=== PATIENT | male | born 1980 | race Caucasian/White ===

== ENCOUNTER 2024-12-03 12:37 | Inpatient (IN) | payer OTHER ==
[2024-12-03] MEDS ORDERED: DOCUSATE SODIUM 100 MG CAPSULE (FP) PO PRN (13:19)
[2024-12-03] MEDS ORDERED: guaiFENesin 600 MG TABLET.ER (FP) PO PRN (13:19)
[2024-12-03] MEDS ORDERED: NICOTINE POLACRILEX 2 MG LOZENGE BC PRN (13:19)
[2024-12-03] MEDS ORDERED: BENZOCAINE/MENTHOL (CHLORASEPTIC ) LOZENGE MM PRN (13:19)
[2024-12-03] MEDS ORDERED: BISACODYL 5 MG TABLET.DR (FP) PO PRN (13:19)
[2024-12-03] MEDS ORDERED: NALOXONE (NARCAN) HCL 4 MG/0.1 ML SPRAY NS PRN (13:19)
[2024-12-03] MEDS ORDERED: MAGNESIUM HYDROX 2400MG/30ML ORAL SUSPENSION 30 ML CUP PO PRN (13:19)
[2024-12-03] MEDS ORDERED: BENZONATATE 200 MG CAPSULE PO PRN (13:19)
[2024-12-03] MEDS ORDERED: LOPERAMIDE HCL 2 MG CAPSULE PO PRN (13:19)
[2024-12-03] MEDS ORDERED: NICOTINE POLACRILEX 2 MG GUM BUC PRN (13:19)
[2024-12-03] MEDS ORDERED: ACETAMINOPHEN 325 MG TABLET (FP) PO PRN (13:19)
[2024-12-03] MEDS ORDERED: POLYETHYLENE GLYCOL (HEALTHYLAX) 3350 17 GM PACKET PO PRN (13:19)
[2024-12-03] MEDS ORDERED: IBUPROFEN 400 MG TABLET (FP) PO PRN (13:19)
[2024-12-03] MEDS ORDERED: P-EPHED 60MG/TRIPROLIDI 2.5MG TABLET PO PRN (13:19)
[2024-12-03] MEDS ORDERED: hydrOXYzine PAMOATE 25 MG CAPSULE (FP) PO PRN (13:19)
[2024-12-03] MEDS ORDERED: MAG HYDROX/AL HYDROX/SIMETH 30 ML UNIT-DOSE CUP PO PRN (13:19)
[2024-12-03 15:19] VITALS: BMI 24.3
[2024-12-03] MEDS: IBUPROFEN 600 MG TABLET (FP) PO PRN (18:05)
[2024-12-03 20:40] LABS: URINE APPEARANCE CLEAR; URINE BILIRUBIN NEGATIVE (NEGATIVE); URINE COLOR YELLOW; URINE GLUCOSE (UA) NEGATIVE (NEGATIVE); URINE KETONE NEGATIVE (NEGATIVE); URINE LEUK ESTERASE NEGATIVE (NEGATIVE); URINE NITRITE NEGATIVE (NEGATIVE); URINE PROTEIN NEGATIVE (NEGATIVE); URINE UROBILINOGEN 0.2 mg/dL (0.2-1.0)
[2024-12-03] MEDS: MELATONIN 5 MG TABLETS PO SCH (21:27)
[2024-12-03] MEDS: THIAMINE 100 MG TABLET PO SCH (21:27)
[2024-12-03] MEDS: METHOCARBAMOL 500 MG TABLET PO PRN (21:27)
[2024-12-03] MEDS: hydrOXYzine PAMOATE 25 MG CAPSULE (FP) PO PRN (21:27)
[2024-12-04] MEDS: PRENATAL VITAMINS W/ FOLIC ACID TABLET (FP) PO SCH (09:08)
[2024-12-04] MEDS ORDERED: BUPRENORPHINE HCL 150 MCG, BUPRENORPHINE HCL 75 MCG BC PRN (10:21)
[2024-12-04 11:07] LABS: HEMATOCRIT 38.6 % (35.4-49); HEMOGLOBIN 12.4 GM/dL (11.7-16.9); MCH 26.8 pg (25.7-33.7); MCHC 32.2 g/dl (32.0-35.9); MEAN CELL VOLUME 83.3 fl (80-96); MEAN PLT VOLUME 7.6 fl (7.5-11.1); PLATELET COUNT 387 10^3/uL (134-434); RBC 4.64 M/mm3 (4.00-5.60); RDW 14.9 % (11.9-15.9); WHITE BLOOD COUNT 6.6 K/mm3 (4.0-10.0)
[2024-12-04 12:35] LABS: POTASSIUM 4.4 mmol/L (3.5-5.1)
[2024-12-04 12:41] LABS: ALBUMIN 3.5 g/dl (3.4-5.0); BLOOD UREA NITROGEN 13.8 mg/dL (7-18); CALCIUM 9.6 mg/dL (8.5-10.1)
[2024-12-04 12:44] LABS: CREATININE 0.9 mg/dL (0.55-1.3)
[2024-12-04 12:46] LABS: BILIRUBIN,TOTAL 0.2 mg/dL (0.2-1); TOT PROT 7.7 g/dl (6.4-8.2)
[2024-12-04] MEDS: cloNIDine HCL 0.1 MG TABLET PO ONE (13:29)
[2024-12-04] MEDS: BUPRENORPHINE HCL 150 MCG, BUPRENORPHINE HCL 75 MCG BC ONE (13:31)
[2024-12-04] MEDS ORDERED: cloNIDine HCL 0.1 MG TABLET PO PRN (14:22)
[2024-12-04] MEDS: diazePAM 5 MG TABLET PO PRN (21:38)
[2024-12-04] MEDS: QUEtiapine FUMARATE 50 MG TABLET PO SCH (21:38)
[2024-12-05] MEDS ORDERED: BUPRENORPHINE HCL 150 MCG, BUPRENORPHINE HCL 75 MCG BC PRN
[2024-12-05] MEDS: BUPRENORPHINE HCL 150 MCG, BUPRENORPHINE HCL 75 MCG BC SCH (06:29)
[2024-12-06] MEDS: BUPRENORPHINE HCL 450 MCG FILM BC SCH (06:36)
[2024-12-07] MEDS: BUPRENORPHINE/NALOXONE 4 MG/1 MG FILM PACKET SL SCH (06:19)
[2024-12-08] MEDS: BUPRENORPHINE/NALOXONE 8 MG/2 MG FILM PACKET SL SCH (09:50)
[2024-12-09] MEDS: BUPRENORPHINE/NALOXONE 8 MG/2 MG FILM PACKET SL SCH (21:25)
[2024-12-09] MEDS ORDERED: BUPRENORPHINE/NALOXONE 4 MG/1 MG FILM PACKET SL SCH (22:00)
[2024-12-17] MEDS: TUBERCULIN PPD 5 TU/0.1ML VIAL ID ONE (12:34)
[2024-12-19] MEDS: BUPRENORPHINE/NALOXONE 8 MG/2 MG FILM PACKET SL SCH (10:22)
[2024-12-19] MEDS: QUEtiapine FUMARATE 100 MG TABLET (FP) PO SCH (21:28)
[2024-12-24] MEDS: BUPRENORPHINE/NALOXONE 8 MG/2 MG FILM PACKET SL ONE (19:35)
[2024-12-25] MEDS: BUPRENORPHINE/NALOXONE 8 MG/2 MG FILM PACKET SL SCH (21:34)
[2024-12-27] MEDS ORDERED: DICYCLOMINE HCL 10 MG CAPSULE PO PRN (10:25)
[2024-12-27] MEDS ORDERED: guaiFENesin 600 MG TABLET.ER (FP) PO PRN (10:25)
[2024-12-27] MEDS ORDERED: BENZONATATE 200 MG CAPSULE PO PRN (10:25)
[2024-12-27] MEDS ORDERED: BISMUTH SUBSALICYLATE 524 MG/30 ML PO PRN (10:25)
[2024-12-27] MEDS ORDERED: ONDANSETRON *ODT* 4 MG TABLET SL PRN (10:25)
[2024-12-29 06:55] VITALS: TEMP 97.6
[2024-12-30 06:39] VITALS: BP 127/90; PULSE 98; RESP 18
== END 2024-12-30 10:26 | disposition home or self-care (01) | DRG 772 ==
LOC: YASAS 12:37 → Y3NR 15:12 → Y5N 12-04 11:50
PROVIDERS: ADMIT Allergy & Immunology; ATTEND Psychiatry & Neurology Pain Medicine
PROC: HZ42ZZZ Group Counseling for Substance Abuse Treatment, Cognitive-Behavioral (ICD-10-PCS; principal; 2024-12-03)
DX: F11.20 Opioid dependence, uncomplicated (principal); F17.290 Nicotine dependence, other tobacco product, uncomplicated; F19.282 Other psychoactive substance dependence with psychoactive substance-induced sleep disorder; F32.A Depression, unspecified; B18.2 Chronic viral hepatitis C; Z59.02 Unsheltered homelessness
CPT/HCPCS: 36415; 80053; 80305; 81003; 85027; 86780; 87811; 93005; 93010

== ENCOUNTER 2025-04-18 13:18 | Inpatient (IN) | payer OTHER ==
[2025-04-18 14:12] VITALS: BMI 23.9
[2025-04-18] MEDS ORDERED: MAG HYDROX/AL HYDROX/SIMETH 30 ML UNIT-DOSE CUP PO PRN (14:34)
[2025-04-18] MEDS ORDERED: BENZOCAINE/MENTHOL (CHLORASEPTIC ) LOZENGE MM PRN (14:34)
[2025-04-18] MEDS ORDERED: BENZONATATE 200 MG CAPSULE PO PRN (14:34)
[2025-04-18] MEDS ORDERED: ONDANSETRON *ODT* 4 MG TABLET SL PRN (14:34)
[2025-04-18] MEDS ORDERED: IBUPROFEN 600 MG TABLET (FP) PO PRN (14:34)
[2025-04-18] MEDS ORDERED: NALOXONE (NARCAN) HCL 4 MG/0.1 ML SPRAY NS PRN (14:34)
[2025-04-18] MEDS ORDERED: POLYETHYLENE GLYCOL (HEALTHYLAX) 3350 17 GM PACKET PO PRN (14:34)
[2025-04-18] MEDS ORDERED: MAGNESIUM HYDROX 2400MG/30ML ORAL SUSPENSION 30 ML CUP PO PRN (14:34)
[2025-04-18] MEDS ORDERED: P-EPHED 60MG/TRIPROLIDI 2.5MG TABLET PO PRN (14:34)
[2025-04-18] MEDS ORDERED: ACETAMINOPHEN 325 MG TABLET (FP) PO PRN (14:34)
[2025-04-18] MEDS ORDERED: BISMUTH SUBSALICYLATE 262 MG/15 ML BTL PO PRN (14:34)
[2025-04-18] MEDS ORDERED: DICYCLOMINE HCL 10 MG CAPSULE PO PRN (14:34)
[2025-04-18] MEDS ORDERED: guaiFENesin 600 MG TABLET.ER (FP) PO PRN (14:34)
[2025-04-18] MEDS ORDERED: LOPERAMIDE HCL 2 MG CAPSULE PO PRN (14:34)
[2025-04-18] MEDS ORDERED: IBUPROFEN 400 MG TABLET (FP) PO PRN (14:34)
[2025-04-18] MEDS ORDERED: NICOTINE POLACRILEX 2 MG LOZENGE BC PRN (14:34)
[2025-04-18] MEDS: THIAMINE 100 MG TABLET PO SCH (22:32)
[2025-04-18] MEDS: MELATONIN 5 MG TABLETS PO SCH (22:33)
[2025-04-19] MEDS: PRENATAL VITAMINS W/ FOLIC ACID TABLET (FP) PO SCH (09:09)
[2025-04-19] MEDS: methaDONE HCL 40 MG DISPERSABLE TABLET PO ONE (10:41)
[2025-04-19] MEDS ORDERED: cloNIDine HCL 0.1 MG TABLET PO PRN (10:43)
[2025-04-19] MEDS: METHOCARBAMOL 500 MG TABLET PO PRN (22:16)
[2025-04-19] MEDS: QUEtiapine FUMARATE 100 MG TABLET (FP) PO PRN (22:16)
[2025-04-20] MEDS: methaDONE 40 MG, methaDONE 10 MG PO ONE (09:44)
[2025-04-20 21:39] LABS: PH,URINE 5.5 (5.0-8.0); URINE APPEARANCE TURBID; URINE BILIRUBIN NEGATIVE (NEGATIVE); URINE COLOR YELLOW; URINE GLUCOSE (UA) NEGATIVE (NEGATIVE); URINE KETONE TRACE (NEGATIVE); URINE LEUK ESTERASE NEGATIVE (NEGATIVE); URINE NITRITE NEGATIVE (NEGATIVE); URINE PROTEIN NEGATIVE (NEGATIVE)
[2025-04-21] MEDS ORDERED: cloNIDine HCL 0.1 MG TABLET PO PRN
[2025-04-21] MEDS: methaDONE 40 MG, methaDONE 20 MG PO ONE (09:10)
[2025-04-21 12:48] LABS: RDW 13.3 % (12.1-15.9)
[2025-04-21 12:50] LABS: ABSOLUTE IMMATURE GRANULOCYTES 0.02 x10^3/uL (0.0-0.031); BASOPHILS # 0.07 x10^3/uL (0.01-0.08); EOSINOPHIL % 1.1 % (0.8-7.0); EOSINOPHILS # 0.07 x10^3/uL (0.04-0.54); HEMOGLOBIN 13.1 g/dL (13.7-17.5); MEAN CELL VOLUME 84.2 fl (79.0-92.2); MEAN PLT VOLUME 9.2 fl (9.4-12.4); MONOCYTE # 0.61 x10^3/uL (0.30-0.82); MONOCYTE % 9.7 % (5.3-12.2); PLATELET COUNT 326 x10^3/uL (163-337)
[2025-04-21 12:53] LABS: POTASSIUM 4.5 mmol/L (3.5-5.1)
[2025-04-21 13:03] LABS: ALBUMIN 3.7 g/dl (3.4-5.0); BLOOD UREA NITROGEN 20.4 mg/dL (7-18)
[2025-04-21 13:04] LABS: BILIRUBIN,TOTAL 0.2 mg/dL (0.2-1); CALCIUM 9.9 mg/dL (8.5-10.1)
[2025-04-21 13:05] LABS: CREATININE 1.1 mg/dL (0.55-1.3)
[2025-04-22] MEDS: methaDONE 40 MG, methaDONE 30 MG PO ONE (09:20)
[2025-04-22] MEDS: NICOTINE POLACRILEX 2 MG GUM BUC PRN (13:12)
[2025-04-22 20:48] VITALS: RESP 16
[2025-04-23 06:16] VITALS: TEMP 97.7
[2025-04-23 09:12] VITALS: BP 158/99; PULSE 80
[2025-04-23] MEDS: methaDONE HCL 40 MG DISPERSABLE TABLET PO ONE (10:07)
[2025-04-24] MEDS ORDERED: methaDONE 80 MG, methaDONE 10 MG PO ONE (10:00)
== END 2025-04-23 09:05 | disposition home or self-care (01) | DRG 773 ==
LOC: YASAS 13:18 → Y6N 15:14
PROVIDERS: ADMIT Family Medicine; ATTEND Family Medicine Addiction Medicine
PROC: HZ2ZZZZ Detoxification Services for Substance Abuse Treatment (ICD-10-PCS; principal; 2025-04-18)
DX: F11.23 Opioid dependence with withdrawal (principal); F14.10 Cocaine abuse, uncomplicated; F12.20 Cannabis dependence, uncomplicated; F17.210 Nicotine dependence, cigarettes, uncomplicated; F19.282 Other psychoactive substance dependence with psychoactive substance-induced sleep disorder; F19.280 Other psychoactive substance dependence with psychoactive substance-induced anxiety disorder; B18.2 Chronic viral hepatitis C; Z59.00 Homelessness unspecified
CPT/HCPCS: 36415; 80053; 80305; 80307; 81003; 85025; 86780